=== PATIENT | female | born 1960 | race Caucasian/White ===

== ENCOUNTER 2017-03-03 13:30 | Day surgery (SDC) | payer OTHER ==
[~2017-03-03] VITALS: Ht 177.8 cm; Wt 102.5 kg
[~2017-03-03 13:30] MED LIST: AMBIEN 10MG10 MG PO; AZULFIDINE500 MG/TAB PO; FISH OIL500 MG PO; FLAGYL500 MG PO; MULTI VITAMINS1 TAB PO; NAPROSYN500 MG PO; NIACOR500 MG PO; NORCO 325 MG-7.1 TAB PO; PHENERGAN 25 TA25 MG PO; PHENERGAN25 MG/ML PO; SYNTHROID 0.0.025 MG PO; TOPAMAX50 MG PO; VITAMIN C500 MG PO; WELLBUTRIN 100100 MG PO
[2017-03-03 14:08] VITALS: BP 149/81; PULSE 81; TEMP 97.3
[2017-03-03] MEDS ORDERED: ULTRAM 50MG TAB50 MG PO (14:21)
[2017-03-03 15:45] VITALS: BP 147/79; PULSE 74; TEMP 97.9
[2017-03-03 16:00] VITALS: BP 128/80; PULSE 72
[2017-03-03 16:23] VITALS: BP 115/71; PULSE 78
== END 2017-03-03 16:50 | disposition home or self-care (01) ==
LOC: SDCO 13:30
DX: K63.3 Ulcer of intestine (principal); K52.9 Noninfective gastroenteritis and colitis, unspecified; R19.7 Diarrhea, unspecified; Z90.49 Acquired absence of other specified parts of digestive tract; Z87.19 Personal history of other diseases of the digestive system; Z86.010 Personal history of colon polyps
CPT/HCPCS: OP; J2250; J2405; J3010; J7030